=== PATIENT | male | born 2000 | race Caucasian/White ===

== ENCOUNTER → 2023-05-03 10:00 | Outpatient (BNV) | payer OTHER, SELFPAY | PROVIDERS: Visit Provider Psychiatry & Neurology Psychiatry | DX: F31.9 Bipolar disorder, unspecified (principal); F41.1 Generalized anxiety disorder; F16.129 Hallucinogen abuse with intoxication, unspecified; F12.10 Cannabis abuse, uncomplicated | CPT/HCPCS: 90792; 99213 ==

== ENCOUNTER 2023-05-08 09:45 | Outpatient (RCR) | payer OTHER, SELFPAY ==
[2023-04-24 11:55] VITALS: BMI 23.8
[2023-04-24 12:41] VITALS: BP 122/87; PULSE 111; TEMP 37.2
--- NOTE | 2023-04-25 10:01 | PC.ADMIT ---
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 He was referred to [facility] by his psychiatrist d/t increased depression. He is currently on home living with his parents on winter. Patient reportedly overdosed on hallucinogens while in college on 03/28/23 and was having thoughts to kill himself wanting to jump out a window however his friends stopped him and called EMS. When police arrived patient stated he asked police to kill him and when they did not comply he stated he tried to grab the gun to shoot himself. Patient was subsequently hospitalized on a behavioral health unit in [place] from 03/28-04/01/23. Patient stated he was using a small amount of psilocybin for the past month or more however that day he used a large amount and had a, serious trip . Asked him how he felt about the incident now and he stated he felt embarrassed and traumatized. He also lost his friends d/t the incident. Patient is alert and oriented x4. Calm and cooperative. Denied SI or thoughts to harm himself. He has not used any substances since the incident. He wants to learn healthier coping skills. He was given a copy of his safety plan if needed. Medications reconciled with patient and patient's pharmacy. He reports he resumed his ADHD medication Focalin since discharge. He stated they stopped this medication while he was inpatient to give him a break however he stated the doctor told him he could resume once discharged.
--- NOTE | 2023-04-25 16:44 | HO.PHP ---
Client's case has been opened and reviewed in treatment team.
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
--- NOTE | 2023-04-26 10:05 | HO.PHP ---
Pt called to report he would be late to programing this morning. Pt arrived at 10 am, past the cut-off time for late arrivals which is 9:30. Bead Builder checked in with pt at 10:05 to remind him of the program guidelines and assess safety. Pt reports he sat in his car when he arrived here since he felt groggy . Reported he wasn't aware of the cut-off time. Pt cooperative, reports he will be more mindful and work on arriving on time.
--- NOTE | 2023-05-02 21:07 | HO.PHPPROGNO ---
Subjective Subjective Date of Service: 05/02/23 Reason For Visit: bipolar Interim History: Patient seen for follow-up. They deny any acute issues or concerns. They report it's going great , their time at [employer]. They have found groups to be helpful and helping them process a lot of what has happened in the past few months and over the past year. They report their mood is good and my attitude toward everyday stuff is better . He shares some progress he has made with his houseplants and shares a sense of wonder and accomplishment everytime a new leaf sprouts. He says he enjoys seeing the progress from his efforts. He discussed interpersonal dynamics and reports one of his friends reached out to him last week via text to say hi, which he said he was blindsided by and was confused because this same friend had solicited the help of the retail store associate at his college to relay a message to Z a few weeks ago that she did not want to be friends with them anymore. That was the last he heard of this friend. They said she ended up criticizing them for their lack of enthusiasm on the phone call, and again rejected their friendship, and ended the call, which caused Z to have an emotional breakdown following their conversation. They report they wre able to pull themselves back together and has been focusing on the plants and enjoying the company of their family. They plan to join some school clubs for the spring and is hoping to build new friendships and alliances. They deny any SI , HI, AH, VH. Sleep, appetite, energy are intact. Medication Compliance: Yes Side effects from medications: No Attending Groups: Yes Review of Systems Acute medical concerns: No Mental Status Exam Mental Status Exam Narrative: Alert, oriented, in no acute distress. Casually dressed. Calm, cooperative, forthcoming. Eye contact. Mood less depressed, affect constricted. Normal speech. No evidence of thought disorder. Thought content relevant to stressors. No SI or HI on inquiry. No evidence of jaden or psychosis. Cognition grossly intact. Sensorium clear. Insight and judgment fair. Diagnostics Vital Signs (24Hr): BMI result Body Mass Index 23.8 Assessment & Plan Assessment & Plan (1) Bipolar disorder, unspecified: Status: Acute Code(s): F31.9 - Bipolar disorder, unspecified (2) Generalized anxiety disorder: Status: Acute Code(s): F41.1 - Generalized anxiety disorder (3) Hallucinogen abuse with intoxication with complication: Status: Acute Code(s): F16.129 - Hallucinogen abuse with intoxication, unspecified (4) Cannabis abuse: Status: Acute Code(s): F12.10 - Cannabis abuse, uncomplicated Plan continue with current medications Patient educated on: diagnosis, medication risk/benefits and substance abuse Informed Consent: understands Reason for contiued partial hosp. stay Substantial Risk for: rapid decompensation and med/psych decompensation Certification I certify that partial hospital treatment is medically necessary due to the symptoms and problems resulting from the patient's mental illness and the failure to treat the patient at the partial hospital level of care would likely result in the patient requiring inpatient psychiatric care which could not be prevented at a less intensive level of care. Total time managing care of this patient today __30__ minutes. Discharge Plan Discharge Attending provider: Henrietta Birmingham Medications: Continued sertraline 100 mg tablet 150 mg PO DAILY Rx Instructions: Take 1.5 tab daily. olanzapine 2.5 mg tablet 2.5 mg PO BEDTIME ergocalciferol (vitamin D2) 1,250 mcg (50,000 unit) capsule 1,250 mcg PO QWEEK bupropion HCl 150 mg tablet extended release 24 hr 150 mg PO QAM dexmethylphenidate [Focalin XR] 35 mg Capsule,Er Biphasic 50-50 35 mg PO DAILY cyanocobalamin (vitamin B-12) [Vitamin B-12] 500 mcg Tablet 500 mcg PO DAILY sildenafil 50 mg tablet 50 mg PO DAILY PRN (Reason: Sexual Activity) Stand Alone Forms: Patient Portal Discharge page
--- NOTE | 2023-05-07 23:13 | P.PNPSP_ITS ---
Subjective Subjective Date of Service: 05/07/23 Reason For Visit: bipolar Interim History: Patient seen for follow-up, anticipating discharge at the end of program tomorrow.? Reports no acute issues or concerns. Medication compliant, medications well- tolerated. Denies any adverse effects. Next provider appointment is on 05/09 but will be rescheduling for a week later now that they will be returning to school. Has been enjoying spending time growing random things , most recently potatoes. Reports anxiety is a lot lower . Notes one of biggest triggers initially was social stressors and questioning whether he was going to return to school. They say now they have decided to return to school next week and feels good about this decision. I learned a lot of skills and ways to manage anxiety since being here Reports mood is good . Denies any hopelessness or SI. Last suicidal thought was Mar 27. Denies thoughts of harming self or others at this time. Denies any aggressive ideation or HI. Denies any paranoia or AH or VH. Sleep, appetite, energy stable. Medication Compliance: Yes Side effects from medications: No Attending Groups: Yes Review of Systems Acute medical concerns: No Mental Status Exam Mental Status Exam Narrative: Alert, oriented, in no acute distress. Casually dressed. Calm, cooperative, forthcoming. Eye contact. Mood euthymic, affect varied, reactive. Normal speech. No evidence of thought disorder. Thought content relevant to stressors. No SI or HI on inquiry. No evidence of jaden or psychosis. Cognition grossly intact. Sensorium clear. Insight and judgment fair but adequate. Diagnostics Vital Signs (24Hr): BMI result Body Mass Index 23.8 Assessment & Plan Assessment & Plan (1) Bipolar disorder, unspecified: Status: Acute Code(s): F31.9 - Bipolar disorder, unspecified (2) Generalized anxiety disorder: Status: Acute Code(s): F41.1 - Generalized anxiety disorder (3) Hallucinogen abuse with intoxication with complication: Status: Acute Code(s): F16.129 - Hallucinogen abuse with intoxication, unspecified Assessment and Plan: in early remission (4) Cannabis abuse: Status: Acute Code(s): F12.10 - Cannabis abuse, uncomplicated Assessment and Plan: in early remission Plan [facility]charge from [facility] tomorrow Continue with current medication regime Will defer further medication management to outpatient provider Patient to continue treatment as per dispo plan Patient educated on: diagnosis, medication risk/benefits and substance abuse Informed Consent: understands Reason for contiued partial hosp. stay Substantial Risk for: stable for discharge Certification I certify that partial hospital treatment is medically necessary due to the symptoms and problems resulting from the patient's mental illness and the failure to treat the patient at the partial hospital level of care would likely result in the patient requiring inpatient psychiatric care which could not be prevented at a less intensive level of care. Total time managing care of this patient today __30__ minutes. Discharge Plan Discharge Attending provider: Henrietta Birmingham Additional Instructions: Sahshi has a scheduled OP therapy appointment with Navjot Osullivan at his [facility]. Shashi's next scheduled appointment is on May 09, 2023 at 2 PM. Shashi has a med provider appointment with Dr. Schaffer on May 14, 2023 at 2 PM. Medications: Continued ergocalciferol (vitamin D2) 1,250 mcg (50,000 unit) capsule 1,250 mcg PO QWEEK cyanocobalamin (vitamin B-12) [Vitamin B-12] 500 mcg Tablet 500 mcg PO DAILY sildenafil 50 mg tablet 50 mg PO DAILY PRN (Reason: Sexual Activity) sertraline 100 mg tablet 150 mg PO DAILY 15 Days Qty: 23 0RF Rx Instructions: Take 1.5 tab daily. olanzapine 2.5 mg tablet 2.5 mg PO BEDTIME 15 Days Qty: 15 0RF bupropion HCl 150 mg tablet extended release 24 hr 150 mg PO QAM 15 Days Qty: 15 0RF dexmethylphenidate [Focalin XR] 35 mg Capsule,Er Biphasic 50-50 35 mg PO DAILY 15 Days Qty: 15 0RF Stand Alone Forms: Patient Portal Discharge page Patient Education: Bipolar Disorder (DC)
[2023-05-08 13:45] LABS: Amphetamine Screen Urine Not Detected (Not Detect); Barbiturates, Urine Not Detected (Not Detect); Benzodiazepines Screen Urine Not Detected (Not Detect); Cannabinoid Screen Urine Not Detected (Not Detect); Cocaine Screen Urine Not Detected (Not Detect); Fentanyl, urine Not Detected (Not Detect); Opiate Screen Urine Not Detected (Not Detect); Phencyclidine Screen Urine Not Detected (Not Detect)
== END 2023-05-08 23:59 | disposition home or self-care (01) ==
LOC: HO.PHPA 09:45
PROVIDERS: Visit Provider Psychiatry & Neurology Psychiatry
DX: F31.9 Bipolar disorder, unspecified (principal); F41.1 Generalized anxiety disorder; F12.10 Cannabis abuse, uncomplicated; F16.129 Hallucinogen abuse with intoxication, unspecified
CPT/HCPCS: 80307; 90791; 90853